=== PATIENT | male | born 1985 | race African-American/Black ===

== ENCOUNTER 2017-10-15 13:34 | Emergency (ER) | payer OTHER ==
[~2017-10-15] VITALS: Ht 190.5 cm; Wt 93.0 kg
== END 2017-10-15 15:17 | disposition home or self-care (01) ==
LOC: ER 13:34
DX: S05.42XA Penetrating wound of orbit with or without foreign body, left eye, initial encounter (principal); Z88.1 Allergy status to other antibiotic agents; Z88.8 Allergy status to other drugs, medicaments and biological substances; Y08.89XA Assault by other specified means, initial encounter; Y93.89 Activity, other specified; Y92.89 Other specified places as the place of occurrence of the external cause; Y99.8 Other external cause status